=== PATIENT | female | born 1990 | race Caucasian/White ===

== ENCOUNTER 2019-08-02 07:54 | Inpatient (IN) ==
--- NOTE | 2019-08-02 08:14 | OB/GYN History & Physical ---
Date of Encounter: 08/02/19 Time of Encounter: 08:12 Assessment and Plan (1) First in adolescent 16 years of age or older in third trimester Current visit: Yes Status: Acute (2) 39 weeks gestation of Current visit: Yes Status: Acute (3) Gestational diabetes Current visit: Yes Status: Acute Qualifiers: Gestational diabetes mellitus control: diet-controlled Trimester: third trimester Qualified Code(s): O24.410 - Gestational diabetes mellitus in , diet controlled (4) Elective induction of labor planned Current visit: Yes Status: Acute She will be induced with a Garcia catheter and Cytotec vaginally plan is to anticipate normal spontaneous vaginal delivery History of Present Illness HPI: Ms. Heller is a 29 year old female 1 para 0 at 39-4/7 weeks by last menstrual period equal to a 9-1/7 week ultrasound who presented for induction of labor secondary to and being an A1 gestational diabetic. Patient has been monitored weekly with NSTs blood sugars have been stable. She has been followed by maternal- medicine at [facility]. The recommendatio n was when she got into the 39 week range to deliver. Other than the diabetes she has had an unremarkable course. She states she has been having some occasional contractions but nothing that she can time denies any leaking of fluid no vaginal bleeding or discharge. Patient is GBS negative, A+, rubella positive, Varicella positive Past Med Surg Social Fam HX - Past Medical History Source: patient, old records reviewed Medical history: no medical history Additional medical history: Diet controlled gestational diabetic Psychiatric history: anxiety - Past Surgical History Surgical History: appendectomy Additional surgical history: wisdom - Social History Smoking Status: Current every day smoker Smokeless Tobacco Status: No Alcohol use: none Drug use: none Occupational status: employed Current living situation: Home - Independent Activity Level: Independent ambulation Recent Out of Country Travel Within the Last 8 Weeks: No Exposure or Possible Exposure to Illness During Travel: No - Family History Maternal Grandmother Living Status: Hx Family Cardiac Disorders: Yes (CHF) Hx Family Respiratory Disorders: Yes (COPD, sleep apnea) Hx Family Cancer: No Hx Family GI Disorders: No Hx Family Genitourinary Disorders: No Hx Family Endocrine Disorder: Yes (Diabetes) Hx Family Musculoskeletal Disorders: No Hx Family Neuromuscular Disorders: No Hx Family Neurologic Disorders: No Hx Family HEENT Disorders: No Hx Family Autoimmune Disorders: No Hx Family Reproductive Disorders: No Hx Family Psychosocial Disorders: No Hx Family Medical Disorders: Yes (kidney failure) - Additional Family History Additional family history: Family history noncontributory Obstetrical History - Pregnancies : 1 Para: 0 Livin Medications and Allergies Pnv No.95/Ferrous Fum/Folic AC [ Caplet] 1 each PO DAILY 02/16/19 [History] Allergy/AdvReac Type Severity Reaction Status Date / Time No Known Allergies Allergy Verified 02/16/19 20:25 Review of System OB All systems PM: reviewed and no additional remarkable complaints except as stated Exam - Constitutional Constitutional: well developed, well nourished, no acute distress, average body habitus - HEENT HEENT: EOMI, PERRL, Mucus Membranes Moist - Neck Neck exam: full ROM - Lungs Respiratory exam: CTAB - Cardiovascular Cardiovascular exam: RRR - Abdomen Abdomen: Present: bowel sounds normal, gravid ( heart tones 140s reactive no contraction seen at this time) - Cervix Dilation: 1 Effacement: 80 Station: 0 (Garcia catheter placed 40 mL balloon inflated followed by 25 g Cytotec placed vaginally) Results All other labs normal.
[2019-08-02] MEDS ORDERED: Naloxone 0.4 MG/ML INJ IVP PRN (08:15)
[2019-08-02] MEDS ORDERED: Metoclopramide 10 MG/2 ML VIAL IVP PRN (08:15)
[2019-08-02] MEDS ORDERED: Ringers Solution, Lactated 1,000 ML IVC SCH (08:15)
[2019-08-02] MEDS ORDERED: Lidocaine 1% 20 ML MDV ID PRN (08:15)
[2019-08-02] MEDS ORDERED: Famotidine 20 MG/2 ML VIAL IVP PRN (08:15)
[2019-08-02] MEDS ORDERED: *HR* Nalbuphine 10 MG/ML AMPUL IVP PRN (08:15)
[2019-08-02] MEDS ORDERED: miSOPROStol 25 MCG TABLET VG PRN (08:19)
[2019-08-02 08:42] LABS: Basophils % 0.2 %; Eosinophils # 0.1 K/mcL (0.0-0.6); Eosinophils % 0.5 %; Hematocrit 36.2 % (35.3-44.9); Immature Granulocytes % 0.6 % (0-4); Lymphocytes # 3.3 K/mcL (0.6-4.6); Lymphocytes % 27.5 %; Mean Corpuscular HGB Conc 33.1 g/dL (31.6-35.5); Mean Corpuscular Hemoglobin 31.3 pg (28.0-33.3); Mean Corpuscular Volume 94.5 fL (83.0-100.0); Mean Platelet Volume 11.1 fL (9.4-12.4); Monocytes # 0.7 K/mcL (0.0-1.3); Monocytes % 5.6 %; Neutrophils # 7.9 K/mcL (1.6-8.9); Platelet Count 271 K/mcL (140-400); Red Blood Count 3.83 M/mcL (3.82-4.97); Red Cell Distribution Width 13.2 % (11.5-14.5); Segmented Neutrophils % 65.6 %
--- NOTE | 2019-08-02 09:45 | Anesthesia Evaluation PreOp ---
Date of Encounter: 08/02/19 Time of Encounter: 09:41 - Past History Planned Operation: del, G1 induction 39wks Cardiac History: Denies any Significant Hx Pulmonary History: Smoker PATIENT SAFETY TECH History: Other (anxiety, chronic back pain- yrs back "back went out" radiculopathy down both feet, since then it resolved, see chiropath its gotten better. no cont radiculopathy reported or dependent radiculopathy) Other Medical History: Diabetes Type II (gestational DM, diet controlled.) Anesthesia History: No Prior Anesthetic Complications, Past Anesthesia (during appy surgery, she states she woke up during the surgery (someone told her she woke up, no recall of the event), no other reported family comp) Alcohol Use: none Drug use: none Medications and Allergies Pnv No.95/Ferrous Fum/Folic AC [ Caplet] 1 each PO DAILY 02/16/19 [History] Allergy/AdvReac Type Severity Reaction Status Date / Time No Known Allergies Allergy Verified 02/16/19 20:25 Anesthesia Results - Labs 08/02/19 08:20 08/02/19 08:20 Anesthesia Exam - HEENT Pupil (Motor): Pupils equal Mallampati: II Teeth: Normal Oral Opening: Greater than 3 - PATIENT SAFETY TECH LOC: Oriented PATIENT SAFETY TECH Motor: Normal RUE, Normal LUE, Normal RLE, Normal LLE, Normal Face PATIENT SAFETY TECH Sensory: Normal: RUE, LUE, RLE, LLE, Face - Cardiac Rhythm: Regular Murmur: None - Pulmonary Breath Sounds: bilateral Clear Respiratory Effort: Symmetrical Anesthesia Assess/Plan ASA Score: 2 Level of consciousness: Cooperative, Oriented Anesthetic Plan: General, Spinal, Epidural Monitoring Plan: Standard Monitors Recovery Plan: PACU
[2019-08-02] MEDS ORDERED: Epidural Premix (fent/bupiv) 110 ML EP SCH (10:00)
[2019-08-02 10:15] LABS: Amphetamine Screen,Urine Negative ng/mL (Cutoff=1000); Barbiturate Screen,Urine Negative ng/mL (Cutoff=200); Benzodiazepines Screen,Urine Negative ng/mL (Cutoff=200); Cannabinoid Screen,Urine Negative ng/mL (Cutoff = 50); Cocaine Screen,Urine Negative ng/mL (Cutoff= 300); Opiate Screen,Urine Negative ng/mL (Cutoff=300); Phencyclidine Screen,Urine Negative ng/mL (Cutoff=25)
[2019-08-02] MEDS ORDERED: EPHEDrine 50 MG/ML VIAL ONE (13:39)
--- NOTE | 2019-08-02 14:04 | Anesthesia Procedures ---
Date of Encounter: 08/02/19 Time of Encounter: 13:08 Procedures: Anesthesia - Epidural/Spinal Patient ID/Chart reviewed: Yes Patient examined: Yes OB Eval: : 1 OB Eval: Contractions: Non-stressed pattern Consent Obtained: Yes Supplemental Oxygen: None/Room Air Site Prep: Aseptic Technique, Sterile prep and drape, 0.5% Chlorhexidine/Alcohol Patient position: upright Local Anesthetic: Lidocaine 1% Amount of Local Anesthetic used: 2 Touhy Needle Gauge: 18 Touhy Needle Depth (cm): 5 Catheter Depth at Skin (cm): 10 Test Dose (1.5% Lido + Epi): Volume given (mls): 4 Test Dose Result: Negative Loading Dose: Other: 10ml from solution Loading Dose Administered: Thru Catheter Infusion Med: 0.125% Bupivacaine w/ 2 mcg/ml Fentanyl Infusion Rate (mls/hr): [address]: Tegaderm, Tape Interspace Used: L3-L4 Loss of Resistance (VAL): Yes (saline) Blood: No CSF: Yes (25g purposeful) Paresthesia: No Procedure: vss though out, mild BP drop after, teated with fluids, stephie small dose, ephedrine 10mg d/t late dec, and left lat tilt.
--- NOTE | 2019-08-02 14:24 | OB Labor Progress Note ---
Date of Encounter: 08/02/19 Time of Encounter: 14:22 Labor Progress Note - Subjective Subjective: comfortable with epidural - Cervix Cervix: 3-4/80/-2 - Heart Tones Heart Tones: 120/minimal/- accels/ variable decels - Nixa Nixa: 2-3 - Interventions Interventions: AROM for small amount of clear fluid IUPC placed - Plan Physician notified: No Plan: Continue current management plan frequent repositioning Anticipate
[2019-08-02] MEDS ORDERED: Oxytocin 20 units/ LR 1000 mL 20 UNIT/1,000 ML BAG IVC ONE (17:47)
--- NOTE | 2019-08-02 17:58 | OB Labor Progress Note ---
Date of Encounter: 08/02/19 Time of Encounter: 17:57 Labor Progress Note - Subjective Subjective: Patient comfortable states feel like she is having a bowel movement every time she has a contraction - Cervix Cervix: complete/100/+2 - Heart Tones Heart Tones: heart tones 120s reassuring - [place]: Contractions every 2 minutes - Interventions Interventions: We will start pushing plan is to anticipate vaginal delivery
--- NOTE | 2019-08-02 18:37 | OB/GYN Procedure Note ---
Delivery - Delivery Date: 08/02/19 Provider: Samm Hilliard Intrapartum events: none Delivery induction: whitehead, misoprostol Delivery augmentation: rupture of membranes Delivery monitor: external FHT, external uterine, internal uterine Anesthesia: local, epidural Quantitated Blood Loss: 100 - Infant (s) Infant A Infant Delivery Date: 08/02/19 Delivery Time: 18:37 Presentation: vertex Position: ELIZABETH Route of delivery: Gender: Female Viability: Viable Pounds: 7 Ounces: 5 Weight Gram: 3.33 kg at 1 minute: 8 at 5 mins: 9 Shoulder Dystocia: not encountered Specimens collected: cord blood Placenta: spontaneous Cord: 3 umbilical vessels - Repair Episiotomy: none Laceration Description: Periurethral (bilateral), Perineal - 2nd Degree - Complications Delivery comments: Patient is a 29-year-old 1 para 0 at 39-4/7 weeks who presented for induction labor secondary term with history of gestational diabetes patient was an A1 diabetic well-controlled is recommended she be delivered in the 39 week range. Patient was brought to labor and delivery with folic acid was placed along with 25 g of Cytotec. Catheter fell out approximately 4 hours later she received an epidural and she was artificially ruptured clear fluid. Patient progressed appropriately and rapidly patient became complete and pushed for approximately 20 minutes delivering a viable female in right occiput anterior presentation at 1815. There was no nuchal cord, no meconium, the infant was suctioned on the abdomen. Apgars were 8 at one and 9 at one, weight was 7 lbs. 5 oz. Placenta was delivered spontaneously with three-vessel cord, factory superintendent up [place], anesthesia epidural local, estimated blood loss 100 mL. Patient had a second-degree perineal laceration with bilateral periurethral repaired with 3-0 Vicryl in usual fashion. Cervix and vagina was visualized intact patient will be observed 2 hours before being taken floor - Disposition Mom disposition: stable in LDR Thompson disposition: stable in LDR
[2019-08-02] MEDS ORDERED: Ondansetron 4 MG/2 ML VIAL ONE (18:54)
[2019-08-02] MEDS ORDERED: Benzocaine/Menthol 56 GM AEROSOL SPRAY TP PRN (21:07)
[2019-08-02] MEDS ORDERED: Oxytocin 20 units/ LR 1000 mL 20 UNIT/1,000 ML BAG IVC SCH (21:07)
[2019-08-02] MEDS ORDERED: Acetaminophen 325 MG TABLET PO PRN (21:07)
[2019-08-02] MEDS ORDERED: Lanolin 7 G OINT...G. TP PRN (21:07)
[2019-08-02] MEDS: Ibuprofen 600 MG TABLET PO PRN (21:48)
[2019-08-03] MEDS: Ibuprofen 600 MG TABLET PO PRN (03:58)
[2019-08-03 06:59] LABS: Basophils % 0.2 %; Eosinophils # 0.1 K/mcL (0.0-0.6); Eosinophils % 0.4 %; Hematocrit 31.7 % (35.3-44.9); Hemoglobin 10.6 g/dL (11.5-15.4); Immature Granulocytes % 0.5 % (0-4); Lymphocytes # 3.3 K/mcL (0.6-4.6); Lymphocytes % 19.7 %; Mean Corpuscular HGB Conc 33.4 g/dL (31.6-35.5); Mean Corpuscular Hemoglobin 31.4 pg (28.0-33.3); Mean Corpuscular Volume 93.8 fL (83.0-100.0); Mean Platelet Volume 10.8 fL (9.4-12.4); Neutrophils # 12.3 K/mcL (1.6-8.9); Platelet Count 243 K/mcL (140-400); Red Blood Count 3.38 M/mcL (3.82-4.97); Red Cell Distribution Width 13.2 % (11.5-14.5); Segmented Neutrophils % 73.2 %; White Blood Count 16.8 K/mcL (4.3-11.1)
[2019-08-03] MEDS ORDERED: Prenatal Vit/FA 1 EACH TABLET PO SCH (09:00)
--- NOTE | 2019-08-03 10:59 | Discharge Summary ---
Date of Encounter: 08/03/19 Time of Encounter: 10:59 - Discharge Diagnosis (1) Vaginal delivery Priority: Primary Status: Acute Comments: S/P vaginal delivery day 1 Pain is well controlled lochia is light and without clots VSS Tolerating regular diet; passing flatus Voiding without difficulty Bottle feeding Discharge home todays POC per consult with Dr Moralez - Discharge Medications Prescriptions: New Docusate [Colace] 100 mg PO BID #30 capsule Benzocaine/Menthol [place] [Dermoplast [place]] 1 appl TP QID PRN aerosol PRN Reason: See Comments Ferrous Sulfate 325 mg PO DAILY #90 tablet Lanolin [Lansinoh] 1 appl TP QID PRN oint...g. PRN Reason: Ibuprofen [Motrin] 600 mg PO Q6H PRN #30 tablet PRN Reason: Cramping Acetaminophen [Tylenol] 650 mg PO Q6H PRN tablet PRN Reason: Mild Pain Continued Pnv No.95/Ferrous Fum/Folic AC [ Caplet] 1 each PO DAILY Home Medications: Pnv No.95/Ferrous Fum/Folic AC [ Caplet] 1 each PO DAILY 02/16/19 [History] Acetaminophen [Tylenol] 650 mg PO Q6H PRN tablet 08/03/19 [Rx] Benzocaine/Menthol [place] [Dermoplast [place]] 1 appl TP QID PRN aerosol 08/03/19 [Rx] Docusate [Colace] 100 mg PO BID #30 capsule 08/03/19 [Rx] Ferrous Sulfate 325 mg PO DAILY #90 tablet 08/03/19 [Rx] Ibuprofen [Motrin] 600 mg PO Q6H PRN #30 tablet 08/03/19 [Rx] Lanolin [Lansinoh] 1 appl TP QID PRN oint...g. 08/03/19 [Rx] Allergies/Adverse Reactions: Allergy/AdvReac Type Severity Reaction Status Date / Time No Known Allergies Allergy Verified 02/16/19 20:25 Data Procedures and tests throughout hospitalization: Laboratory Tests 08/02/19 08/02/19 08/02/19 08:20 08:20 08:20 WBC 12.0 H RBC 3.83 Hgb 12.0 Hct 36.2 MCV 94.5 MCH 31.3 MCHC 33.1 RDW 13.2 Plt Count 271 MPV 11.1 Immature Gran % 0.6 Seg Neutrophils % 65.6 Lymphocytes % 27.5 Monocytes % 5.6 Eosinophils % 0.5 Basophils % 0.2 Neutrophils # 7.9 Lymphocytes # 3.3 Monocytes # 0.7 Eosinophils # 0.1 Basophils # 0.0 Glucose 89 Urine Opiates Screen Negative Ur Buprenorphine Scrn Negative Ur Barbiturates Screen Negative Ur Phencyclidine Scrn Negative Ur Amphetamines Screen Negative U Benzodiazepines Scrn Negative Urine Cocaine Screen Negative U Marijuana (THC) Screen Negative Ur Drug Screen Interp See Below 08/03/19 06:33 WBC 16.8 H RBC 3.38 L Hgb 10.6 L Hct 31.7 L MCV 93.8 MCH 31.4 MCHC 33.4 RDW 13.2 Plt Count 243 MPV 10.8 Immature Gran % 0.5 Seg Neutrophils % 73.2 Lymphocytes % 19.7 Monocytes % 6.0 Eosinophils % 0.4 Basophils % 0.2 Neutrophils # 12.3 H Lymphocytes # 3.3 Monocytes # 1.0 Eosinophils # 0.1 Basophils # 0.0 Glucose Urine Opiates Screen Ur Buprenorphine Scrn Ur Barbiturates Screen Ur Phencyclidine Scrn Ur Amphetamines Screen U Benzodiazepines Scrn Urine Cocaine Screen U Marijuana (THC) Screen Ur Drug Screen Interp Labs on day of discharge: Labs from last 24 hours 08/03/19 06:33 WBC 16.8 H RBC 3.38 L Hgb 10.6 L Hct 31.7 L MCV 93.8 MCH 31.4 MCHC 33.4 RDW 13.2 Plt Count 243 MPV 10.8 Immature Gran % 0.5 Seg Neutrophils % 73.2 Lymphocytes % 19.7 Monocytes % 6.0 Eosinophils % 0.4 Basophils % 0.2 Neutrophils # 12.3 H Lymphocytes # 3.3 Monocytes # 1.0 Eosinophils # 0.1 Basophils # 0.0 Date of admission: 08/02/19 07:54 Primary care physician: Mera Crook MD Consults: 08/02/19 21:07 Consult to Hog Cooler [CONS] Routine Comment: Vaginal delivery, consult needed Discharging clinician: Cayla Cordoba Anticipated date of discharge: 08/03/19 - Patient Status Disposition: Home, Self-Care Condition: Good Functional capacity at discharge: independent ambulation Overall status at discharge: patient is progressing back to baseline - Discharge Instructions Follow Up With: Mera Crook MD [Primary Care Provider] - Samm Hilliard DO [Partnered Physician] - - Diet and Activity Activity: increase activity as tolerated Diet: regular diet Hospital Course Reason for admission: IUP at term Delivery: Episiotomy: none Laceration: 2nd degree, other Other procedures: none complications: none Discharge diagnosis: IUP at term delivered baby: female Time Attestation: Total time spent providing and/or coordinating discharge services: Time Spent: Less than 30 minutes Exam - Constitutional Vitals: Temp Pulse Resp BP Pulse Ox 97.7 F 52 20 103/74 97 08/03/19 07:33 08/03/19 08:11 08/03/19 08:11 08/03/19 07:33 08/03/19 07:33 General appearance IM: cooperative, A&O X 3, pleasant, no acute distress - Respiratory Respiratory exam: Present: CTAB. Absent: respiratory distress - Cardiovascular Cardiovascular exam IM: Present: RRR, +S1, +S2. Absent: irregular rhythm - GI/Abdominal GI/Abdominal exam IM: normal bowel sounds - Rectal Rectal exam: deferred - Uterine Tone: Firm Uterus Position: At Umbilicus, Midline - Extremities Exam Extremities exam IM: Present: normal capillary refill, normal inspection, radial pulses palpable and symmetrical. Absent: calf tenderness - Neurological Exam Neurological exam: alert, oriented X3
[2019-08-03 16:17] VITALS: BP 111/72
== END 2019-08-03 20:30 | disposition home or self-care (01) | DRG 560 ==
LOC: 1NENULAB 07:54 → 1NENUOBS 21:07
PROVIDERS: ADMIT Obstetrics & Gynecology; ATTEND Obstetrics & Gynecology